=== PATIENT | female | born 1955 | race Caucasian/White ===

== ENCOUNTER 2017-12-10 12:10 | Emergency (ER) | payer MEDICARE, MEDICAID ==
[~2017-12-10 12:10] MED LIST: AMLO-99 PO; ASPI-1471 PO; ATOR10TA24 PO; CYCL10TA29 PO; ESTR1.2525 PO; GINK500C3 PO; HYDR-4309 PO; HYDR-6015 PO; KET10 PO; LEVE500T73 PO; LISI20TA29 PO; LOR5/325 PO; LORA-1456 PO; MULT-1335 PO; ONDA4TAB97 PO; POTA20TA94 PO; TRAM-420 PO; VITA1CAP46 PO
--- NOTE | 2017-12-10 12:20 | ER Report ---
History and Physical Time Seen By MD: 12:20 HPI/ROS CHIEF COMPLAINT: Fall with left elbow and left shoulder pain HISTORY OF PRESENT ILLNESS: 62-year-old female patient presents to emergency room with complaint of left shoulder and elbow pain. Patient states that she was walking her dog when she turned around and lost her balance falling. She states that she is trying to protect her head, she has had surgery in the past on her head. She states that she landed hard on her left elbow and left shoulder. She states that she hit on her right hand causing some bruising. She states that this occurred 3 days ago. She's been taking her tramadol for pain. She states this been no improvement in her pain from that. Patient denies having any loss of consciousness, dizziness, nausea, vomiting or diarrhea. Patient states that her pain is significant. She's been alternating ice and heat to her elbow. She states that it tends to swell in the afternoon and evenings. REVIEW OF SYSTEMS: Respiratory: No cough, no dyspnea. Cardiovascular: No chest pain, no palpitations. Gastrointestinal: No vomiting, no abdominal pain. Musculoskeletal: As noted above. Allergies: Coded Allergies: Penicillins (Unverified Allergy, Unknown, 12/10/17) Home Meds Reported Medications Atorvastatin Calcium (LIPITOR) 10 Mg Tablet, 1 TAB PO QDAY, TAB 10/02/17 Tramadol Hcl (TRAMADOL HCL) 50 Mg Tablet, 50-100 MG PO Q6-8H, TAB 10/02/17 Multivitamin With Minerals (MULTIPLE VITAMIN) 1 Each Tablet, 1 EACH PO DAILY, TAB 04/11/17 Ginkgo Biloba (GINKGO BILOBA) 500 Mg Capsule, 500-1000 MG PO DAILY, CAPSULE 04/11/17 Vitamin B Complex (VITAMIN B COMPLEX) 1 Each Capsule, 1 EACH PO DAILY, CAPSULE 04/11/17 Aspirin (ASPIR 81) 81 Mg Tablet.dr, 81 MG PO QDAY, TAB 04/11/17 Lisinopril (LISINOPRIL) 20 Mg Tablet, 20 MG PO QDAY, TAB 07/24/15 Levetiracetam (LEVETIRACETAM) 500 Mg Tablet, 500 MG PO QDAY 07/24/15 Past Medical/Surgical History Patient has a past medical history of seizures, migraines, seasonal allergies, pneumonia, ulcers, reflux, back pain, cataract, rheumatoid arthritis, alcohol abuse, cervical cancer, ovarian cancer. Patient has surgical history of cataract surgery, back surgery 3, left knee surgery, right knee surgery, right hand surgery, hysterectomy, cholecystectomy, appendectomy, blood clot removed from brain. Patient has a family medical history of diabetes, stroke, CAD, cancer. Reviewed Nurses Notes: Yes Hx Smoking: Yes (2-6 daily) Smoking Status: Current: Every Day Smoker Hx Substance Use Disorder: No Hx Alcohol Use: Yes (PREVIOUS DRINKER QUIT WITH HER BACK PROBLEMS) Constitutional Vital Sign - Last 24 Hours 12/10/17 12/10/17 12/10/17 12/10/17 12:18 12:20 12:30 13:00 Temp 98.0 Pulse 81 Resp 20 B/P (MAP) 131/86 131/86 (101) 118/81 (93) 104/66 (79) Pulse Ox 97 O2 Delivery Room Air Physical Exam General Appearance: The patient is alert, has no immediate need for airway protection and no current signs of toxicity. ENT: Tympanic membranes are pearly-argueta, auditory canals are patent, mucous membranes are moist. Respiratory: Chest is non tender, lungs are clear to auscultation. Cardiac: regular rate and rhythm Gastrointestinal: Abdomen is soft and non tender, no masses, bowel sounds normal. Musculoskeletal: Neck: Neck is supple and non tender. Extremities have full range of motion and are non tender. Patient has tenderness to the left elbow, seems to be most noticeable on the epicondyles, no bruising or swelling noted. Patient has tenderness to the left shoulder. Also no bruising or swelling noted. Skin: No rashes or lesions. DIFFERENTIAL DIAGNOSIS: After history and physical exam differential diagnosis was considered for contusion, sprain, fracture. Medical Decision Making EKG/Imaging Imaging 3 views left elbow Indication: Fall two days ago elbow pain Comparison: X-ray examination left elbow October 07, 2014 Findings: Bony alignment is anatomic. No fracture or destructive osseous process. No significant joint effusion. IMPRESSION: 1. No acute osseous abnormality of the left elbow. Report Dictated By: Felix Miller MD at 12/10/2017 1:02 PM Report E-Signed By: Felix Miller MD at 12/10/2017 1:04 PM SHOULDER MIN 2 VIEWS LEFT HISTORY: fall with pain, 3 days ago Additional history: None COMPARISON: None. FINDINGS: Glenohumeral joint is unremarkable in appearance. No evidence of fractures or dislocation. No degenerative changes appreciated. IMPRESSION: Negative exam Report Dictated By: Gato Buitrago MD at 12/10/2017 1:02 PM Report E-Signed By: Gato Buitrago MD at 12/10/2017 1:03 PM ED Course/Re-evaluation ED Course Patient was admitted and examined, history and physical were obtained. Differential diagnoses were considered. Patient has tenderness to the left elbow , left shoulder. X-rays done of the shoulder and elbow. They were negative for fractures. I discussed the findings with patient. We will go ahead and place her in a sling. We will go ahead and discharge her home. We will not prescribe her any pain medication and share his pain medication home. She is to ice the shoulder and the elbow. She is to follow-up with her primary care provider. I discussed with patient who verbalized understanding and agreement with plan. Decision to Disposition Date: Dec 10, 2017 Decision to Disposition Time: 13:18 Depart Departure Latest Vital Signs Vital Signs Date Time Temp Pulse Resp B/P (MAP) Pulse Ox O2 Delivery O2 Flow Rate FiO2 12/10/17 13:00 104/66 (79) 12/10/17 12:18 98.0 81 20 97 Room Air Impression: Primary Impression: Elbow contusion Additional Impression: Shoulder contusion Condition: Improved Disposition: HOME OR SELF-CARE Referrals: JENNIFER GOMEZ MD (PCP) Patient Instructions: Contusion in Adults (ED) Additional Instructions: Limit activity by pain. Ice the shoulder and the elbow 2-3 times a day for 10-15 minutes. Get plenty of rest. Wear the sling for the next 3-4 days. Follow up with your primary care provider in the next week. Continue with your current medications for pain. Problem Qualifiers Primary Impression: Elbow contusion Encounter type: initial encounter Laterality: left Qualified Codes: S50.02XA - Contusion of left elbow, initial encounter Additional Impression: Shoulder contusion Encounter type: initial encounter Laterality: left Qualified Codes: S40.012A - Contusion of left shoulder, initial encounter DELORES VALENTINO Dec 10, 2017 12:20
[2017-12-10 13:00] VITALS: BP 104/66
--- NOTE | 2017-12-10 13:08 | RADIOLOGY IMAGING REPORT ---
FACILITY: [facility] PATIENT NAME: Sury Willis : 1955 MR: [id number] V: [id number] EXAM DATE: ORDERING PHYSICIAN: DELORES VALENTINO TECHNOLOGIST: Location: [facility] - [place] Patient: Sury Willis : 1955 Visit/Account:[id number] Date of Sevice: 12/10/2017 SHOULDER MIN 2 VIEWS LEFT HISTORY: fall with pain, 3 days ago Additional history: None COMPARISON: None. FINDINGS: Glenohumeral joint is unremarkable in appearance. No evidence of fractures or dislocation. No degen erative changes appreciated. IMPRESSION: Negative exam Report Dictated By: Gato Buitrago MD at 12/10/2017 1:02 PM Report E-Signed By: Gato Buitrago MD at 12/10/2017 1:03 PM WSN:[id number]
--- NOTE | 2017-12-10 13:09 | RADIOLOGY IMAGING REPORT ---
FACILITY: [facility] PATIENT NAME: Sury Willis : 1955 MR: [id number] V: [id number] EXAM DATE: ORDERING PHYSICIAN: DELORES VALENTINO TECHNOLOGIST: Location: [facility] Patient: Sury Willis : 1955 Visit/Account:[id number] Date of Sevice: 12/10/2017 3 views left elbow Indication: Fall two days ago elbow pain Comparison: X-ray examination left elbow October 07, 2014 Findings: Bony alignment is anatomic. No fracture or destructive osseous process. No significant joint effusi on. IMPRESSION: 1. No acute osseous abnormality of the left elbow. Report Dictated By: Felix Miller MD at 12/10/2017 1:02 PM Report E-Signed By: Felix Miller MD at 12/10/2017 1:04 PM WSN:[email or web address]
== END 2017-12-10 13:29 | disposition home or self-care (01) ==
LOC: ER 12:31
DX: S50.02XA Contusion of left elbow, initial encounter (principal); S40.012A Contusion of left shoulder, initial encounter; W18.30XA Fall on same level, unspecified, initial encounter; Y93.K1 Activity, walking an animal
CPT/HCPCS: 73030; 73080; 99282; A4565

== ENCOUNTER 2018-05-11 15:42 | Emergency (ER) | payer MEDICARE, MEDICAID ==
[2018-05-11] MEDS ORDERED: ASPIRIN 81 MG CHEW PO ONE (15:55)
--- NOTE | 2018-05-11 15:55 | ER Report ---
History and Physical Time Seen By MD: 15:45 Hx. of Stated Complaint: PT PRESENTS WITH HX OF INTERMITTANT CHEST PAINFOR ONE WEEK. GETTING MORE PERSISTANT WITH PAIN IN L ARM HPI/ROS CHIEF COMPLAINT: chest pain HISTORY OF PRESENT ILLNESS: Pt has had pain on left side of her chest that is sharp and pressure for one week. Started intermittently and then became more persistent. Has been constant since she woke up this am. Pain worse with palpation and with deep breath. Pt also has some posterior neck pain with radiation down left arm. No nausea. + sob. Pt denies hx of cardiac ds, dm or htn. Pt does have hyperlipidemia. Pt is also a smoker. Pt went to pcp and sent to ed. REVIEW OF SYSTEMS: Constitutional: No fever, no chills. Eyes: No discharge. ENT: No sore throat. Cardiovascular: + chest pain, no palpitations. Respiratory: No cough, + shortness of breath. Gastrointestinal: No abdominal pain, no vomiting. Genitourinary: No hematuria. Musculoskeletal: No back pain, + neck pain Skin: No rashes. Neurological: No headache, + numbness left arm intermittent Allergies: Coded Allergies: Penicillins (Unverified Allergy, Unknown, 05/11/18) Home Meds Active Scripts Hydrocodone Bit/Acetaminophen (HYDROCODON-ACETAMINOPHEN 5-325) 1 Each Tablet, 1 EACH PO Q4-6H Y for PAIN, #20 TAB Prov:OMID GAN DO 05/11/18 Reported Medications Atorvastatin Calcium (LIPITOR) 10 Mg Tablet, 1 TAB PO QDAY, TAB 10/02/17 Tramadol Hcl (TRAMADOL HCL) 50 Mg Tablet, 50-100 MG PO Q6-8H, TAB 10/02/17 Multivitamin With Minerals (MULTIPLE VITAMIN) 1 Each Tablet, 1 EACH PO DAILY, TAB 04/11/17 Ginkgo Biloba (GINKGO BILOBA) 500 Mg Capsule, 500-1000 MG PO DAILY, CAPSULE 04/11/17 Vitamin B Complex (VITAMIN B COMPLEX) 1 Each Capsule, 1 EACH PO DAILY, CAPSULE 04/11/17 Aspirin (ASPIR 81) 81 Mg Tablet.dr, 81 MG PO QDAY, TAB 04/11/17 Lisinopril (LISINOPRIL) 20 Mg Tablet, 20 MG PO QDAY, TAB 07/24/15 Levetiracetam (LEVETIRACETAM) 500 Mg Tablet, 500 MG PO QDAY 07/24/15 Past Medical/Surgical History Pamhx: seizures, migraines, seasonal allergies, pneumonia, ulcers, reflux, back pain, cataract, rheumatoid arthritis, alcohol abuse, cervical cancer, ovarian cancer. Pshx: of cataract surgery, back surgery 3, left knee surgery, right knee surgery, right hand surgery, hysterectomy, cholecystectomy, appendectomy, blood clot removed from brain. Pfhx: diabetes, stroke, CAD, cancer. Reviewed Nurses Notes: Yes Old Medical Records Reviewed: Yes Hx Smoking: Yes (2-6 daily) Smoking Status: Current: Every Day Smoker Hx Substance Use Disorder: No Hx Alcohol Use: No (PREVIOUS DRINKER QUIT WITH HER BACK PROBLEMS) Constitutional Vital Sign - Last 24 Hours 05/11/18 05/11/18 05/11/18 05/11/18 15:46 15:49 16:00 16:05 Temp 98.6 Pulse 58 58 Resp 20 13 B/P (MAP) 118/87 (97) 118/87 122/70 (87) Pulse Ox 99 95 O2 Delivery Room Air 05/11/18 05/11/18 05/11/18 05/11/18 16:30 16:35 16:45 17:00 Pulse 55 Resp 11 B/P (MAP) 120/71 (87) 118/73 (88) 116/68 (84) Pulse Ox 94 05/11/18 05/11/18 05/11/18 05/11/18 17:05 17:15 17:30 17:35 Pulse 54 55 Resp 15 21 B/P (MAP) 117/72 (87) 123/78 (93) Pulse Ox 95 96 05/11/18 05/11/18 05/11/18 05/11/18 17:45 17:50 18:00 18:05 Pulse 56 58 Resp 9 18 B/P (MAP) 132/80 (97) 132/78 (96) Pulse Ox 96 100 05/11/18 05/11/18 05/11/18 05/11/18 18:30 18:35 18:45 18:50 Pulse 52 56 Resp 11 23 B/P (MAP) 117/77 (90) 116/74 (88) Pulse Ox 98 98 05/11/18 05/11/18 05/11/18 05/11/18 19:00 19:05 19:15 19:20 Pulse 54 59 Resp 10 20 B/P (MAP) 123/75 (91) 122/72 (89) Pulse Ox 98 97 05/11/18 05/11/18 05/11/18 19:30 19:35 19:45 Pulse 56 Resp 16 B/P (MAP) 131/72 (91) 104/66 (79) Pulse Ox 96 Physical Exam General Appearance: The patient is alert, has no immediate need for airway protection and no signs of toxicity. Eyes: Pupils equal and round no pallor or injection, EOMI ENT: no pharyngeal erythema or exudates, Mucous membranes are moist, TM are nl b/l Respiratory: There are no retractions, lungs are clear to auscultation. Cardiovascular: Regular rate and rhythm. pulses are equal and symmetrical, + chest wall tenderness left anterior chest wall Gastrointestinal: Abdomen is soft and non tender, no masses, bowel sounds normal, no guarding, no rigidity or rebound Neurological: Cranial nerves II-XII grossly intact, no sensory or motor loss Skin: Warm and dry, no rashes. Musculoskeletal: Neck is supple non tender, no vertebral tenderness Extremities are nontender, non swollen and have full range of motion. DIFFERENTIAL DIAGNOSIS: After history and physical exam differential diagnosis was considered for acs, mi, pe, costochondritis, pleurisy, cervical radiculopathy Medical Decision Making Data Points Result Diagram: 05/11/18 1554 05/11/18 1554 Laboratory Hematology Test 05/11/18 15:54 05/11/18 19:29 Red Blood Count 4.50 M/uL (4.17-5.56) Mean Corpuscular Volume 93.7 fL (80.0-96.0) Mean Corpuscular Hemoglobin 33.1 pg (26.0-33.0) Mean Corpuscular Hemoglobin Concent 35.3 g/dL (32.0-36.0) Red Cell Distribution Width 13.0 % (11.5-14.5) Mean Platelet Volume 7.6 fL (7.2-11.1) Neutrophils (%) (Auto) 41.8 % (39.4-72.5) Lymphocytes (%) (Auto) 47.7 % (17.6-49.6) Monocytes (%) (Auto) 7.9 % (4.1-12.4) Eosinophils (%) (Auto) 1.5 % (0.4-6.7) Basophils (%) (Auto) 1.1 % (0.3-1.4) Nucleated RBC Relative Count (auto) 0.1 /100WBC Neutrophils # (Auto) 2.0 K/uL (2.0-7.4) Lymphocytes # (Auto) 2.3 K/uL (1.3-3.6) Monocytes # (Auto) 0.4 K/uL (0.3-1.0) Eosinophils # (Auto) 0.1 K/uL (0.0-0.5) Basophils # (Auto) 0.1 K/uL (0.0-0.1) Nucleated RBC Absolute Count (auto) 0.00 K/uL Prothrombin Time 12.5 seconds (12.0-14.4) Prothromb Time International Ratio 0.93 Activated Partial Thromboplast Time 29 seconds (23-35) D-Dimer Quantitative (PE/DVT) 0.36 ug/ml (0-0.50) Sodium Level 138 mmol/L (137-145) Potassium Level 3.9 mmol/L (3.5-5.0) Chloride Level 105 mmol/L (98-107) Carbon Dioxide Level 27 mmol/L (22-31) Blood Urea Nitrogen 15 mg/dl (7-18) Creatinine 1.10 mg/dl (0.52-1.04) Glomerular Filtration Rate Calc 50.5 Random Glucose 81 mg/dl (75-110) Calcium Level 9.2 mg/dl (8.4-10.2) Total Bilirubin 0.3 mg/dl (0.2-1.3) Aspartate Amino Transf (AST/SGOT) 31 U/L (0-35) Alanine Aminotransferase (ALT/SGPT) 44 U/L (0-56) Alkaline Phosphatase 64 U/L (0-126) Total Protein 7.0 g/dl (6.3-8.2) Albumin 4.2 g/dl (3.5-5.0) Lipase 258 U/L (23-300) Troponin I < 0.012 ng/ml Chemistry Test 05/11/18 15:54 05/11/18 19:29 White Blood Count 4.7 k/uL (4.5-11.0) Red Blood Count 4.50 M/uL (4.17-5.56) Hemoglobin 14.9 g/dL (12.0-16.0) Hematocrit 42.2 % (34.0-47.0) Mean Corpuscular Volume 93.7 fL (80.0-96.0) Mean Corpuscular Hemoglobin 33.1 pg (26.0-33.0) Mean Corpuscular Hemoglobin Concent 35.3 g/dL (32.0-36.0) Red Cell Distribution Width 13.0 % (11.5-14.5) Platelet Count 223 K/uL (150-450) Mean Platelet Volume 7.6 fL (7.2-11.1) Neutrophils (%) (Auto) 41.8 % (39.4-72.5) Lymphocytes (%) (Auto) 47.7 % (17.6-49.6) Monocytes (%) (Auto) 7.9 % (4.1-12.4) Eosinophils (%) (Auto) 1.5 % (0.4-6.7) Basophils (%) (Auto) 1.1 % (0.3-1.4) Nucleated RBC Relative Count (auto) 0.1 /100WBC Neutrophils # (Auto) 2.0 K/uL (2.0-7.4) Lymphocytes # (Auto) 2.3 K/uL (1.3-3.6) Monocytes # (Auto) 0.4 K/uL (0.3-1.0) Eosinophils # (Auto) 0.1 K/uL (0.0-0.5) Basophils # (Auto) 0.1 K/uL (0.0-0.1) Nucleated RBC Absolute Count (auto) 0.00 K/uL Prothrombin Time 12.5 seconds (12.0-14.4) Prothromb Time International Ratio 0.93 Activated Partial Thromboplast Time 29 seconds (23-35) D-Dimer Quantitative (PE/DVT) 0.36 ug/ml (0-0.50) Glomerular Filtration Rate Calc 50.5 Calcium Level 9.2 mg/dl (8.4-10.2) Total Bilirubin 0.3 mg/dl (0.2-1.3) Aspartate Amino Transf (AST/SGOT) 31 U/L (0-35) Alanine Aminotransferase (ALT/SGPT) 44 U/L (0-56) Alkaline Phosphatase 64 U/L (0-126) Total Protein 7.0 g/dl (6.3-8.2) Albumin 4.2 g/dl (3.5-5.0) Lipase 258 U/L (23-300) Troponin I < 0.012 ng/ml Coagulation Test 05/11/18 15:54 Prothrombin Time 12.5 seconds Prothromb Time International Ratio 0.93 Activated Partial Thromboplast Time 29 seconds D-Dimer Quantitative (PE/DVT) 0.36 ug/ml EKG/Imaging EKG Interpretation Sinus kate @ 54 with no acute changes; when compared to prior on January 2016 rate is now kate. Imaging see report. ED Course/Re-evaluation Clinical Indication for ER IV: IV Access ED Course 05/11/2018 5:16:36 pm Pts initial troponin is negative. I have a low suspicion for CT as cause of pain due to pain is very reproducible. Pts xray of her neck does show severe osteoarthritis and space narrowing between C4-5, c5-6 and C6- 7. I suspect pt has a herniated disc in her neck causing the pain down her arm. Currently pt does not have any weakness with the numbness/pain in the arm. I offered pt an MRI of cervical spine today but she declined and would prefer to follow up with a specialist in [place]. Pt declined to see at [facility] her in [facility]. I will keep pt for second troponin. 05/11/2018 6:19:33 pm Pt still feeling uncomfortable. Pain has not changed with toradol. will give a vicodin which she has had in the past. awaiting troponin at 730. Signed out to Dr. Scales pending second troponin. Decision to Disposition Date: May 11, 2018 Decision to Disposition Time: 18:20 Depart Departure Latest Vital Signs Vital Signs Date Time Temp Pulse Resp B/P (MAP) Pulse Ox O2 Delivery O2 Flow Rate FiO2 05/11/18 19:45 104/66 (79) 05/11/18 19:35 56 16 96 05/11/18 15:49 98.6 Room Air Impression: Primary Impression: Osteoarthritis cervical spine Additional Impressions: Cervical radiculopathy Nonspecific chest pain Condition: Condition Unchanged Disposition: HOME OR SELF-CARE Referrals: JENNIFER GOMEZ MD (PCP) 2 Days New Scripts Hydrocodone Bit/Acetaminophen (HYDROCODON-ACETAMINOPHEN 5-325) 1 Each Tablet 1 EACH PO Q4-6H Y for PAIN, #20 TAB Prov: OMID GAN DO 05/11/18 Patient Instructions: Cervical Radiculopathy (GEN), Chest Pain (GEN) Additional Instructions: Your blood work today did not show a heart attack. This does not mean you do not have heart disease. Follow up with your family doctor to schedule a stress test and further testing. Your Xray of your neck is suspicious for possible herniated disc causing your arm issues. Recommend MRI of cervical spine as an out patient. Return for any concerns that develop prior to seeing your doctor. VIcodin one every 4 hours as needed for pain. Problem Qualifiers Primary Impression: Osteoarthritis cervical spine Spinal osteoarthritis complication: with radiculopathy Qualified Codes: M47.22 - Other spondylosis with radiculopathy, cervical region OMID GAN DO May 11, 2018 15:55
[2018-05-11 16:07] LABS: PLATELET COUNT, AUTOMATED 223 K/uL (150-450)
--- NOTE | 2018-05-11 16:11 | EKG ---
FACILITY: [facility] - [place] PATIENT NAME: WINDY SKINNER : [id number] MR: [id number] V: [id number] EXAM DATE: ORDERING PHYSICIAN: OMID GAN TECHNOLOGIST: TONY Serrano Reason : Blood Pressure : / mmHG Vent. Rate : 054 BPM Atrial Rate : 054 BPM P-R Int : 136 ms QRS Dur : 084 ms QT Int : 426 ms P-R-T Axes : 071 -01 061 degrees QTc Int : 403 ms Sinus bradycardia Otherwise normal ECG When compared with ECG of 07-FEB-2016 18:24, No significant change was found Confirmed by Arsh Feldman ([id number]) on 05/11/2018 5:34:05 PM Referred By: CHICHO Confirmed By:Arsh Ruiz
[2018-05-11 16:18] LABS: INR 0.93
--- NOTE | 2018-05-11 16:57 | RADIOLOGY IMAGING REPORT ---
FACILITY: [facility] - [place] PATIENT NAME: Sury Willis : 1955 MR: [id number] V: [id number] EXAM DATE: ORDERING PHYSICIAN: OMID GAN TECHNOLOGIST: Location: [facility] Patient: Sury Willis : 1955 Visit/Account:[id number] Date of Sevice: 05/11/2018 Exam type: CERVICAL SPINE 2 OR 3 VIEW History: numbness down left arm with neck pain Comparison: None. Findings: Three views of the cervical spine demonstrate no evidence of acute fractures or subluxations. There is Moderate disc space narrowing at C4-5 moderate severe disc space narrowing at C5-6 and C6-7 with a nterior osteophytes. No evidence of prevertebral soft tissue swelling. IMPRESSION: 1. Spondylotic changes of the cervical spine as described although no evidence of acute fractures or subluxations Report Dictated By: Maggie Simmons MD at 05/11/2018 4:52 PM Report E-Signed By: Maggie Simmons MD at 05/11/2018 4:53 PM WSN:[email or web address]
--- NOTE | 2018-05-11 16:58 | RADIOLOGY IMAGING REPORT ---
FACILITY: [facility] PATIENT NAME: Sury Willis : 1955 MR: [id number] V: [id number] EXAM DATE: ORDERING PHYSICIAN: OMID GAN TECHNOLOGIST: Location: [facility] [place] Patient: Sury Willis : 1955 Visit/Account:[id number] Date of Sevice: 05/11/2018 Exam type: CHEST PA AND LAT History: Chest Pain Comparison: July 24, 2015. Findings: The lungs are free of acute effusions, infiltrates or edema. The cardiac silhouette is normal in siz e. There is no evidence of a pneumothorax or pneumomediastinum. IMPRESSION: 1. No acute cardiopulmonary process is seen Report Dictated By: Maggie Simmons MD at 05/11/2018 4:53 PM Report E-Signed By: Maggie Simmons MD at 05/11/2018 4:54 PM WSN:[email or web address]
[2018-05-11] MEDS ORDERED: KETOROLAC 15 MG/ML VIAL IVP ONE (17:00)
[2018-05-11] MEDS ORDERED: ACET/HYDROC 5/325MG TH ER ONLY 2 TAB/BOTTLE PO ONE (18:20)
[2018-05-11] MEDS ORDERED: APAP/HYDROCODONE 325/5 TAB PO ONE (18:20)
[2018-05-11] MEDS ORDERED: HYDR-385 PO (18:24)
[2018-05-11 19:45] VITALS: BP 104/66
== END 2018-05-11 20:08 | disposition home or self-care (01) ==
LOC: ER 15:48
DX: M47.22 Other spondylosis with radiculopathy, cervical region (principal); R07.89 Other chest pain; F17.210 Nicotine dependence, cigarettes, uncomplicated
CPT/HCPCS: 36415; 71046; 72040; 83690; 84484; 85025; 85379; 85610; 85730; 96374; 99284; A9270; J1885; 82040; 82247; 82310; 82374; 82435; 82565; 82947; 84075; 84132; 84155; 84295; 84450; 84460; 84520; 93005

== ENCOUNTER → 2018-06-10 | Outpatient (CLI) | payer MEDICARE, MEDICAID ==
[~2018-06-10] MED LIST changes: +AMLO-113 PO; -AMLO-99 PO; +HYDR-385 PO
--- NOTE | 2018-06-10 15:42 | RT STRESS TEST REPORT ---
FACILITY: [facility] PATIENT NAME: WINDY SKINNER : [id number] MR: [id number] V: [id number] EXAM DATE: ORDERING PHYSICIAN: JENNIFER GOMEZ TECHNOLOGIST: Diego Acquisition Time: 2018-06-10 13:50:46 Total Exercise Time: 00:07:20 Test Indications: chest discomfort, fatigue Medications: See Med sheet Protocol: CROW 2 Max HR: 139 BPM 87% of Pred: 159 BPM Max BP: 195/078 mmHG Max Work Load: 9.0 METS She did not have any chest pain. No significant EKG changes or dysrhythmias were noted. Recovery was unremarkable. IMPRESSION: Suspect Low Probability of Ischemia. Decreased exercise tolerance. Await Myoview Images. Confirmed by ANAY RODGERS ([id number]) on 06/10/2018 3:41:52 PM Referred By: Overread By: ANAY RODGERS
--- NOTE | 2018-06-11 07:14 | RADIOLOGY IMAGING REPORT ---
FACILITY: [facility] PATIENT NAME: Sury Willis : 1955 MR: [id number] V: [id number] EXAM DATE: ORDERING PHYSICIAN: JENNIFER GOMEZ TECHNOLOGIST: Location: [facility] Patient: Sury Willis : 1955 Visit/Account:[id number] Date of Sevice: 06/10/2018 EXAMINATION: Single Isotope SPECT Imaging with Exercise and Gated SPECT Imaging DATE OF EXAMINATION: 06/10/2018 DATE OF INTERPRETATION: 06/11/2018 REQUESTING PHYSICIAN: JENNIFER GOMEZ INDICATION: The patient is a 62-year-old female evaluated for chest pain, fatigue. PROCEDURE: After informed consent the patient received an intravenous injection of 13.7 mCi of Tc-9 9m sestamibi followed at the appropriate time interval by rest imaging. The patient then exercised a ccording to the standard Erick protocol for 7 minutes 20 seconds achieving 8 METS. Resting heart rat e was 49 bpm with a peak heart rate of 139 bpm which is 87 % of maximal predicted heart rate for age . Blood pressure at rest was 139 / 76; blood pressure during exercise was 195 / 78. There was no re ported chest pain during exercise. Exercise was discontinued because of fatigue. Baseline EKG demon strates sinus bradycardia. There were no significant EKG changes of ischemia at peak exercise. Appr oximately one minute and 30 seconds prior to the termination of exercise, the patient received an int ravenous injection of 32.7 mCi of Tc-99m sestamibi followed by stress imaging. RAW DATA: Examination of the summed raw data revealed a good quality study. There is mild breast att enuation present. MYOCARDIAL PERFUSION: The tomographic images demonstrate normal perfusion rest and stress. GATED IMAGES: The gated images demonstrate normal regional wall motion and thickening, LVEF 70% IMPRESSION: 1. Negative exercise stress ECG for angina or ECG changes of ischemia. Good functional capacity 8 Me ts. 2. Normal myocardial perfusion scan. 3. Normal LV systolic function; LVEF 70%. Report Dictated By: James Manzo MD at 06/11/2018 7:06 AM Report E-Signed By: James Manzo MD at 06/11/2018 7:10 AM WSN:[id number]
== END ==
LOC: NUC 01:49
PROVIDERS: ATTEND Family Medicine
DX: R07.9 Chest pain, unspecified (principal)
CPT/HCPCS: 78452; 93017; A9500

== ENCOUNTER 2018-06-30 23:00 | Emergency (ER) | payer MEDICARE, MEDICAID ==
[~2018-06-30 23:00] MED LIST changes: +HYDR-4309 PO; -HYDR-653 PO
--- NOTE | 2018-06-30 23:04 | ER Report ---
History and Physical Time Seen By MD: 23:03 HPI/ROS CHIEF COMPLAINT: Syncope, cannabis use HISTORY OF PRESENT ILLNESS: 62-year-old female brought in by EMS from home after a syncopal episode. Patient spouse states she consumed a normal amount of marijuana. She had a syncopal episode with some seizure-like activity. She was hypotensive. On EMSs arrival. Blood pressure in the 70s over 40s. Patient denies prodromal illness. Patient denies chest pain. She just underwent a nuclear treadmill test which was unremarkable. REVIEW OF SYSTEMS: Respiratory: No cough, no dyspnea. Cardiovascular: No chest pain, no palpitations. Gastrointestinal: No vomiting, no abdominal pain. Musculoskeletal: No back pain. Allergies: Coded Allergies: Penicillins (Unverified Allergy, Unknown, 06/30/18) Home Meds Active Scripts Hydrocodone Bit/Acetaminophen (HYDROCODON-ACETAMINOPHEN 5-325) 1 Each Tablet, 1 EACH PO Q4-6H PRN for PAIN, #20 TAB Prov:OMID GAN Aedn DO 05/11/18 Reported Medications Atorvastatin Calcium (LIPITOR) 10 Mg Tablet, 1 TAB PO QDAY, TAB 10/02/17 Tramadol Hcl (TRAMADOL HCL) 50 Mg Tablet, 50-100 MG PO Q6-8H, TAB 10/02/17 Multivitamin With Minerals (MULTIPLE VITAMIN) 1 Each Tablet, 1 EACH PO DAILY, TAB 04/11/17 Ginkgo Biloba (GINKGO BILOBA) 500 Mg Capsule, 500-1000 MG PO DAILY, CAPSULE 04/11/17 Vitamin B Complex (VITAMIN B COMPLEX) 1 Each Capsule, 1 EACH PO DAILY, CAPSULE 04/11/17 Aspirin (ASPIR 81) 81 Mg Tablet.dr, 81 MG PO QDAY, TAB 04/11/17 Lisinopril (LISINOPRIL) 20 Mg Tablet, 20 MG PO QDAY, TAB 07/24/15 Levetiracetam (LEVETIRACETAM) 500 Mg Tablet, 500 MG PO QDAY 07/24/15 Past Medical/Surgical History Pamhx: seizures, migraines, seasonal allergies, pneumonia, ulcers, reflux, back pain, cataract, rheumatoid arthritis, alcohol abuse, cervical cancer, ovarian cancer. Pshx: of cataract surgery, back surgery 3, left knee surgery, right knee surgery, right hand surgery, hysterectomy, cholecystectomy, appendectomy, blood clot removed from brain. Pfhx: diabetes, stroke, CAD, cancer. Reviewed Nurses Notes: Yes Old Medical Records Reviewed: Yes Hx Smoking: Yes (2-6 daily) Smoking Status: Current: Every Day Smoker Hx Substance Use Disorder: No Hx Alcohol Use: No (PREVIOUS DRINKER QUIT WITH HER BACK PROBLEMS) Constitutional Vital Sign - Last 24 Hours 06/30/18 06/30/18 06/30/18 06/30/18 23:04 23:04 23:15 23:30 Temp 98.2 Pulse 74 74 72 Resp 14 70 14 B/P (MAP) 99/49 ???/??? (8995) Pulse Ox 99 100 100 O2 Delivery Nasal Cannula O2 Flow Rate 2.0 06/30/18 07/01/18 07/01/18 07/01/18 23:45 00:10 00:11 00:15 Pulse 73 75 74 Resp 14 19 17 B/P (MAP) 92/70 (77) Pulse Ox 100 99 07/01/18 07/01/18 07/01/18 07/01/18 00:20 00:30 00:35 00:45 Pulse 73 80 73 68 Resp 19 20 18 20 B/P (MAP) 109/57 (74) Pulse Ox 95 96 94 93 07/01/18 00:50 Pulse 74 Resp 11 Pulse Ox 94 Intake and Output 06/30/18 06/30/18 07/01/18 15:00 23:00 07:00 Intake Total 2000 ml Balance 2000 ml Physical Exam Hypotension, vital signs otherwise stable, afebrile, pulse ox normal, alert and oriented 3, slow affect General Appearance: The patient is alert, has no immediate need for airway protection and no current signs of toxicity. Slightly pale appearing, skin warm and dry, no palpation of head and neck reveal no tenderness or trauma HEENT: Pupils equal and round no injection. EOMI, PERRLA, oropharynx without bite kirby Respiratory: Chest is non tender, lungs are clear to auscultation. Cardiac: regular rate and rhythm Gastrointestinal: Abdomen is soft and non tender, no masses, bowel sounds normal. Musculoskeletal: Neck: Neck is supple and non tender. Extremities have full range of motion and are non tender. Skin: No rashes or lesions. DIFFERENTIAL DIAGNOSIS: After history and physical exam differential diagnosis was considered for syncope including but not limited to vasovagal syncope, arrhythmia, dehydration, and blood loss. Additionally,a seizure including but not limited to electrolyte abnormality, alcohol withdrawal, medication noncompliance, head injury, and breakthrough seizure. Medical Decision Making Data Points Result Diagram: 06/30/18 2324 06/30/184 Laboratory Hematology Test 06/30/18 23:24 07/01/18 00:07 Red Blood Count 3.76 M/uL (4.17-5.56) Mean Corpuscular Volume 97.5 fL (80.0-96.0) Mean Corpuscular Hemoglobin 33.3 pg (26.0-33.0) Mean Corpuscular Hemoglobin Concent 34.1 g/dL (32.0-36.0) Red Cell Distribution Width 13.4 % (11.5-14.5) Mean Platelet Volume 7.5 fL (7.2-11.1) Neutrophils (%) (Auto) 45.2 % (39.4-72.5) Lymphocytes (%) (Auto) 45.5 % (17.6-49.6) Monocytes (%) (Auto) 7.4 % (4.1-12.4) Eosinophils (%) (Auto) 1.5 % (0.4-6.7) Basophils (%) (Auto) 0.4 % (0.3-1.4) Nucleated RBC Relative Count (auto) 0.0 /100WBC Neutrophils # (Auto) 3.1 K/uL (2.0-7.4) Lymphocytes # (Auto) 3.1 K/uL (1.3-3.6) Monocytes # (Auto) 0.5 K/uL (0.3-1.0) Eosinophils # (Auto) 0.1 K/uL (0.0-0.5) Basophils # (Auto) 0.0 K/uL (0.0-0.1) Nucleated RBC Absolute Count (auto) 0.00 K/uL Sodium Level 139 mmol/L (137-145) Potassium Level 3.7 mmol/L (3.5-5.0) Chloride Level 107 mmol/L (98-107) Carbon Dioxide Level 23 mmol/L (22-31) Blood Urea Nitrogen 17 mg/dl (7-18) Creatinine 1.10 mg/dl (0.52-1.04) Glomerular Filtration Rate Calc 50.5 Random Glucose 95 mg/dl (75-110) Calcium Level 8.6 mg/dl (8.4-10.2) Total Bilirubin 0.2 mg/dl (0.2-1.3) Aspartate Amino Transf (AST/SGOT) 24 U/L (0-35) Alanine Aminotransferase (ALT/SGPT) 30 U/L (0-56) Alkaline Phosphatase 57 U/L (0-126) Troponin I < 0.012 ng/ml Total Protein 5.9 g/dl (6.3-8.2) Albumin 3.3 g/dl (3.5-5.0) Urine Color Yellow Urine Clarity Clear Urine pH 5.0 pH (4.8-9.5) Urine Specific [place] 1.014 Urine Protein Negative mg/dL (NEGATIVE) Urine Glucose (UA) Negative mg/dL (NEGATIVE) Urine Ketones Negative mg/dL (NEGATIVE) Urine Blood Negative (NEGATIVE) Urine Nitrite Negative (NEGATIVE) Urine Bilirubin Negative (NEGATIVE) Urine Urobilinogen Negative mg/dL (0.2-1.9) Urine Leukocyte Esterase Negative (NEGATIVE) Urine RBC 1 /HPF (0-2/HPF) Urine WBC 1 /HPF (0-5/HPF) Urine Squamous Epithelial Cells None /LPF (</=FEW) Urine Bacteria Negative /HPF (NONE-FEW) Urine Hyaline Casts Moderate /LPF (NONE-FEW) Urine Mucus None /HPF (NONE-FEW) Urine Opiates Screen Negative Urine Barbiturates Screen Negative Ur Tricyclic Antidepressants Screen Negative Urine Phencyclidine Screen Negative Urine Amphetamines Screen Negative Urine Benzodiazepines Screen Negative Urine Cocaine Screen Negative Urine Cannabinoids Screen Positive Chemistry Test 06/30/18 23:24 07/01/18 00:07 White Blood Count 6.9 k/uL (4.5-11.0) Red Blood Count 3.76 M/uL (4.17-5.56) Hemoglobin 12.5 g/dL (12.0-16.0) Hematocrit 36.6 % (34.0-47.0) Mean Corpuscular Volume 97.5 fL (80.0-96.0) Mean Corpuscular Hemoglobin 33.3 pg (26.0-33.0) Mean Corpuscular Hemoglobin Concent 34.1 g/dL (32.0-36.0) Red Cell Distribution Width 13.4 % (11.5-14.5) Platelet Count 187 K/uL (150-450) Mean Platelet Volume 7.5 fL (7.2-11.1) Neutrophils (%) (Auto) 45.2 % (39.4-72.5) Lymphocytes (%) (Auto) 45.5 % (17.6-49.6) Monocytes (%) (Auto) 7.4 % (4.1-12.4) Eosinophils (%) (Auto) 1.5 % (0.4-6.7) Basophils (%) (Auto) 0.4 % (0.3-1.4) Nucleated RBC Relative Count (auto) 0.0 /100WBC Neutrophils # (Auto) 3.1 K/uL (2.0-7.4) Lymphocytes # (Auto) 3.1 K/uL (1.3-3.6) Monocytes # (Auto) 0.5 K/uL (0.3-1.0) Eosinophils # (Auto) 0.1 K/uL (0.0-0.5) Basophils # (Auto) 0.0 K/uL (0.0-0.1) Nucleated RBC Absolute Count (auto) 0.00 K/uL Glomerular Filtration Rate Calc 50.5 Calcium Level 8.6 mg/dl (8.4-10.2) Total Bilirubin 0.2 mg/dl (0.2-1.3) Aspartate Amino Transf (AST/SGOT) 24 U/L (0-35) Alanine Aminotransferase (ALT/SGPT) 30 U/L (0-56) Alkaline Phosphatase 57 U/L (0-126) Troponin I < 0.012 ng/ml Total Protein 5.9 g/dl (6.3-8.2) Albumin 3.3 g/dl (3.5-5.0) Urine Color Yellow Urine Clarity Clear Urine pH 5.0 pH (4.8-9.5) Urine Specific [place] 1.014 Urine Protein Negative mg/dL (NEGATIVE) Urine Glucose (UA) Negative mg/dL (NEGATIVE) Urine Ketones Negative mg/dL (NEGATIVE) Urine Blood Negative (NEGATIVE) Urine Nitrite Negative (NEGATIVE) Urine Bilirubin Negative (NEGATIVE) Urine Urobilinogen Negative mg/dL (0.2-1.9) Urine Leukocyte Esterase Negative (NEGATIVE) Urine RBC 1 /HPF (0-2/HPF) Urine WBC 1 /HPF (0-5/HPF) Urine Squamous Epithelial Cells None /LPF (</=FEW) Urine Bacteria Negative /HPF (NONE-FEW) Urine Hyaline Casts Moderate /LPF (NONE-FEW) Urine Mucus None /HPF (NONE-FEW) Urine Opiates Screen Negative Urine Barbiturates Screen Negative Ur Tricyclic Antidepressants Screen Negative Urine Phencyclidine Screen Negative Urine Amphetamines Screen Negative Urine Benzodiazepines Screen Negative Urine Cocaine Screen Negative Urine Cannabinoids Screen Positive Toxicology Test 07/01/18 00:07 Urine Opiates Screen Negative Urine Barbiturates Screen Negative Ur Tricyclic Antidepressants Screen Negative Urine Phencyclidine Screen Negative Urine Amphetamines Screen Negative Urine Benzodiazepines Screen Negative Urine Cocaine Screen Negative Urine Cannabinoids Screen Positive Urinalysis Test 07/01/18 00:07 Urine Color Yellow Urine Clarity Clear Urine pH 5.0 pH (4.8-9.5) Urine Specific [place] 1.014 Urine Protein Negative mg/dL (NEGATIVE) Urine Glucose (UA) Negative mg/dL (NEGATIVE) Urine Ketones Negative mg/dL (NEGATIVE) Urine Blood Negative (NEGATIVE) Urine Nitrite Negative (NEGATIVE) Urine Bilirubin Negative (NEGATIVE) Urine Urobilinogen Negative mg/dL (0.2-1.9) Urine Leukocyte Esterase Negative (NEGATIVE) Urine RBC 1 /HPF (0-2/HPF) Urine WBC 1 /HPF (0-5/HPF) Urine Squamous Epithelial Cells None /LPF (</=FEW) Urine Bacteria Negative /HPF (NONE-FEW) Urine Hyaline Casts Moderate /LPF (NONE-FEW) Urine Mucus None /HPF (NONE-FEW) EKG/Imaging EKG Interpretation 12 lead EK Rhythm: normal sinus rhythm [place]: Incomplete right bundle branch block pattern QRS: normal ST segments: normal Imaging X-ray: Single view chest x-ray was obtained. I viewed the images myself on the PACS system. My interpretation of the images is: No infiltrate, no effusion, normal mediastinum., Comparison to previous chest x-ray. No significant change. The radiologist interpretation had no clinically significant variation from this interpretation. Results: CT scan of the head without contrast was obtained. The results of the study are CT Head without contrast Indication: Syncope. History of multiple infarcts. Comparison: 02/07/2016. Technique: Axial CT images were obtained through the brain from the skull base to the vertex without administration of IV contrast. One of the following dose optimization techniques was utilized in the performance of this exam: Automated exposure control; adjustment of the mA and/or kV according to the patient's si ze; or use of an iterative reconstruction technique. Specific details can be referenced in the facility's radiology CT exam operational policy. Findings: No evidence of mass, mass effect, or midline shift. No acute intracranial hemorrhage or acute territorial infarction. Small amount of white matter hypoattenuation likely related to chronic small vessel ischemic disease, similar to prior. Previous left-sided craniotomy with fixation hardware in place. No acute abnormality of the skull. Globes and orbits are nonacute. Lens surgery on the left. The visualized paranasal sinuses and mastoid air spaces are clear. IMPRESSION: No acute intracranial abnormality. The study was read by the radiologist. I viewed the images myself on the PACS system. ED Course/Re-evaluation Clinical Indication for ER IV: Hydration, IV Access ED Course Patient was admitted to an examination room. H&P was done. The differential diagnosis was considered. On clinical examination. Patient is alert and oriented 3. She has a slow affect. I suspect her cannabis use was contaminated with some other byproducts are affecting her adversely. But she does occasionally use marijuana. Patient's aggressively hydrated. Diagnostic studies are sent off.. Patient responds to fluid hydration. She relates to the bathroom. Diagnostic studies show a tox screen positive for cannabis. Her urinalysis is unremarkable. Remainder of her diagnostic studies are unremarkable. Her albumin is slightly low. Decision to Disposition Date: Jul 01, 2018 Decision to Disposition Time: 00:51 Depart Departure Latest Vital Signs Vital Signs Date Time Temp Pulse Resp B/P (MAP) Pulse Ox O2 Delivery O2 Flow Rate FiO2 07/01/18 00:50 74 11 94 07/01/18 00:30 109/57 (74) 06/30/18 23:04 98.2 Nasal Cannula 06/30/18 23:04 2.0 Impression: Primary Impression: Syncope Additional Impressions: Cannabis abuse Hypotension Condition: Improved Disposition: HOME OR SELF-CARE Referrals: JENNIFER GOMEZ MD (PCP) Patient Instructions: Syncope (ED) Additional Instructions: Avoid using illicit substances Follow-up with your primary care if unimproved in 2 days Increase your fluid intake Problem Qualifiers Primary Impression: Syncope Syncope type: vasovagal syncope Qualified Codes: R55 - Syncope and collapse Additional Impressions: Hypotension Hypotension type: hypotension due to drug Qualified Codes: I95.2 - Hypotension due to drugs EKATERINA DAWSON DO Jun 30, 2018 23:04
[2018-06-30] MEDS ORDERED: NS(*) 0.9% 1000 ML BAG 1,000 ML IV ONE (23:09)
[2018-06-30] MEDS ORDERED: EMS NS 0.9%(*) 1000 ML BAG 1,000 ML IV ONE (23:15)
--- NOTE | 2018-06-30 23:28 | EKG ---
FACILITY: [facility] PATIENT NAME: WINDY SKINNER : [id number] MR: [id number] V: [id number] EXAM DATE: ORDERING PHYSICIAN: EKATERINA DAWSON TECHNOLOGIST: MAURA Test Reason : AMS Blood Pressure : / mmHG Vent. Rate : 073 BPM Atrial Rate : 073 BPM P-R Int : 156 ms QRS Dur : 106 ms QT Int : 404 ms P-R-T Axes : 073 060 054 degrees QTc Int : 445 ms Normal sinus rhythm Possible Left atrial enlargement No ST-T abnormalities When compared with ECG of 11-MAY-2018 16:01, Relatively unchanged Confirmed by FARHAN LYON ([id number]) on 07/01/2018 6:47:06 AM Referred By: Confirmed By:FARHAN LYON
[2018-06-30 23:35] LABS: PLATELET COUNT, AUTOMATED 187 K/uL (150-450)
--- NOTE | 2018-06-30 23:54 | RADIOLOGY IMAGING REPORT ---
FACILITY: [facility] - [place] PATIENT NAME: Sury Willis : 1955 MR: [id number] V: [id number] EXAM DATE: ORDERING PHYSICIAN: EKATERINA DAWSON TECHNOLOGIST: Location: [facility] [place] Patient: Sury Willis : 1955 Visit/Account:[id number] Date of Sevice: 06/30/2018 AP CHEST 06/30/2018 11:31 PM. INDICATION: Syncope. COMPARISON: 05/11/2018. FINDINGS: Lungs are well-expanded. There is no consolidation. No pleural effusion or pneumothorax. Heart size i s normal. IMPRESSION: No acute abnormality or significant change. Report Dictated By: Raymond Sprague MD at 06/30/2018 11:49 PM Report E-Signed By: Raymond Sprague MD at 06/30/2018 11:50 PM WSN:[id number]
--- NOTE | 2018-07-01 00:25 | RADIOLOGY IMAGING REPORT ---
FACILITY: [facility] - [place] PATIENT NAME: Sury Willis : 1955 MR: [id number] V: [id number] EXAM DATE: ORDERING PHYSICIAN: EKATERINA DAWSON TECHNOLOGIST: Location: [facility] Patient: Sury Willis : 1955 Visit/Account:[id number] Date of Sevice: 06/30/2018 CT Head without contrast Indication: Syncope. History of multiple infarcts. Comparison: 02/07/2016. Technique: Axial CT images were obtained through the brain from the skull base to the vertex without administration of IV contrast. One of the following dose optimization techniques was utilized in th e performance of this exam: Automated exposure control; adjustment of the mA and/or kV according to t he patient's size; or use of an iterative reconstruction technique. Specific details can be referen rose marie in the facility's radiology CT exam operational policy. Findings: No evidence of mass, mass effect, or midline shift. No acute intracranial hemorrhage or acute territorial infarction. Small amount of white matter hypoattenuation likely related to chronic small vessel ischemic disease, similar to prior. Previous left-sided craniotomy with fixation hardware in place. No acute abnormality of the skull. Globes and orbits are nonacute. Lens surgery on the left. The visualized paranasal sinuses and mastoid air spaces are clear. IMPRESSION: No acute intracranial abnormality. Report Dictated By: Raymond Sprague MD at 07/01/2018 12:15 AM Report E-Signed By: Raymond Sprague MD at 07/01/2018 12:20 AM WSN:[id number]
[2018-07-01 00:30] VITALS: BP 109/57
== END 2018-07-01 01:02 | disposition home or self-care (01) ==
LOC: ER 23:07
DX: R55 Syncope and collapse (principal); I95.2 Hypotension due to drugs; F12.90 Cannabis use, unspecified, uncomplicated; F17.210 Nicotine dependence, cigarettes, uncomplicated
CPT/HCPCS: 70450; 71045; 80305; 81001; 84484; 85025; 93005; 96360; 96361; 99285; J7030; 82040; 82247; 82310; 82374; 82435; 82565; 82947; 84075; 84132; 84155; 84295; 84450; 84460; 84520

== ENCOUNTER → 2018-06-30 | Outpatient (CLI) | payer MEDICARE, MEDICAID ==
[~2018-06-30] MED LIST changes: -HYDR-4309 PO; +HYDR-653 PO
== END ==
LOC: AMB 22:38
PROVIDERS: ATTEND Nurse Practitioner
DX: R55 Syncope and collapse (principal); R53.1 Weakness; F12.10 Cannabis abuse, uncomplicated
CPT/HCPCS: A0425; A0427

== ENCOUNTER 2018-12-31 00:21 | Day surgery (SDC) | payer MEDICARE, MEDICAID ==
[2018-12-31] VITALS (9 sets, daily range): BP systolic 104–152; BP diastolic 55–84
[~2018-12-31] VITALS: Ht 152.4 cm; Wt 58.5 kg
[~2018-12-31 00:21] MED LIST changes: -AMLO-113 PO; +AMLO-127 PO; +ESTR0.5T16 PO; -HYDR-4309 PO; +HYDR-653 PO; +IBUP-136 PO
[2018-12-31] MEDS ORDERED: LIDOCAINE MPF 1% 5 ML VIAL ONE (07:52)
[2018-12-31] MEDS ORDERED: PROPOFOL EMUL(*) 10MG/ML 20 ML 40 ML ONE (07:52)
[2018-12-31] MEDS ORDERED: LIDOCAINE/SOD BICARB 8.4% SYR ID ONE (09:05)
[2018-12-31] MEDS ORDERED: NORMOSOL R SOLN(*) 1000 ML BAG 1,000 ML IV PRN (09:05)
[2018-12-31] MEDS ORDERED: traMADol 50 MG TAB PO ONE (12:30)
== END 2018-12-31 12:45 | disposition home or self-care (01) ==
LOC: OR 00:21
PROVIDERS: ATTEND Family Medicine
DX: Z12.11 Encounter for screening for malignant neoplasm of colon (principal); K63.5 Polyp of colon; Z86.010 Personal history of colon polyps
CPT/HCPCS: 00812; 45380; 88305; A9270; J2001; J2704